=== PATIENT | male | born 1945 | race Caucasian/White ===

== ENCOUNTER → 2023-04-11 13:15 | Outpatient (BNVA) | payer MEDICARE, BC, SELFPAY | PROVIDERS: Visit Provider Nurse Practitioner Family | DX: L57.0 Actinic keratosis (principal); D22.5 Melanocytic nevi of trunk; L81.4 Other melanin hyperpigmentation; L57.8 Other skin changes due to chronic exposure to nonionizing radiation; L82.1 Other seborrheic keratosis; Z85.820 Personal history of malignant melanoma of skin | CPT/HCPCS: 17000; 17003; 99213 ==

== ENCOUNTER → 2023-10-10 13:45 | Outpatient (BNVA) | payer MEDICARE, BC, SELFPAY | PROVIDERS: Visit Provider Nurse Practitioner Family | DX: L57.0 Actinic keratosis (principal); Z85.820 Personal history of malignant melanoma of skin; D22.5 Melanocytic nevi of trunk; L81.4 Other melanin hyperpigmentation; L57.8 Other skin changes due to chronic exposure to nonionizing radiation; L82.1 Other seborrheic keratosis | CPT/HCPCS: 17000; 99213 ==

== ENCOUNTER → 2024-03-24 15:41 | Outpatient (BNVA) | payer MEDICARE, OTHER, SELFPAY | PROVIDERS: Visit Provider Nurse Practitioner Family | DX: D48.5 Neoplasm of uncertain behavior of skin (principal); L57.0 Actinic keratosis; L81.4 Other melanin hyperpigmentation; Z85.820 Personal history of malignant melanoma of skin | CPT/HCPCS: 11102; 17000; 69100; 99213 ==

== ENCOUNTER → 2024-04-21 08:17 | Outpatient (BNVA) | payer MEDICARE, OTHER, SELFPAY | PROVIDERS: Visit Provider Nurse Practitioner Family | DX: C44.319 Basal cell carcinoma of skin of other parts of face (principal); L57.0 Actinic keratosis; L81.4 Other melanin hyperpigmentation; S40.911A Unspecified superficial injury of right shoulder, initial encounter; X58.XXXA Exposure to other specified factors, initial encounter | CPT/HCPCS: 17000; 99213 ==

== ENCOUNTER → 2024-04-27 09:15 | Outpatient (BNVA) | payer MEDICARE, OTHER, SELFPAY | PROVIDERS: Visit Provider Dermatology | DX: C44.319 Basal cell carcinoma of skin of other parts of face (principal); L81.4 Other melanin hyperpigmentation; L82.1 Other seborrheic keratosis; L90.5 Scar conditions and fibrosis of skin | CPT/HCPCS: 13132; 17311; 99213 ==

== ENCOUNTER → 2024-07-09 09:36 | Outpatient (BNVA) | payer MEDICARE, OTHER, SELFPAY | PROVIDERS: Visit Provider Nurse Practitioner Family | DX: D48.5 Neoplasm of uncertain behavior of skin (principal); L82.0 Inflamed seborrheic keratosis; L57.0 Actinic keratosis; L57.8 Other skin changes due to chronic exposure to nonionizing radiation; L81.4 Other melanin hyperpigmentation; Z85.828 Personal history of other malignant neoplasm of skin; Z85.820 Personal history of malignant melanoma of skin | CPT/HCPCS: 11102; 17000; 17110; 99213 ==

== ENCOUNTER → 2024-07-27 09:25 | Outpatient (BNVA) | payer MEDICARE, OTHER, SELFPAY | PROVIDERS: Visit Provider Dermatology | DX: C44.329 Squamous cell carcinoma of skin of other parts of face (principal) | CPT/HCPCS: 13132; 17311 ==

== ENCOUNTER → 2024-10-08 09:45 | Outpatient (BNVA) | payer MEDICARE, OTHER, SELFPAY | PROVIDERS: Visit Provider Nurse Practitioner Family | DX: L82.1 Other seborrheic keratosis (principal); D17.1 Benign lipomatous neoplasm of skin and subcutaneous tissue of trunk; L81.4 Other melanin hyperpigmentation; Z08 Encounter for follow-up examination after completed treatment for malignant neoplasm; Z85.820 Personal history of malignant melanoma of skin; Z85.828 Personal history of other malignant neoplasm of skin; L57.0 Actinic keratosis | CPT/HCPCS: 17000; 99213 ==

== ENCOUNTER → 2025-01-12 08:43 | Outpatient (BNVA) | payer MEDICARE, OTHER, SELFPAY | PROVIDERS: PCP Family Medicine; Visit Provider Orthopaedic Surgery | DX: M25.522 Pain in left elbow (principal); G56.03 Carpal tunnel syndrome, bilateral upper limbs | CPT/HCPCS: 73080; 99204 ==

== ENCOUNTER 2025-01-28 10:05 | Day surgery (SDC) | payer MEDICARE, OTHER, SELFPAY ==
--- NOTE | 2025-01-28 10:22 | P.HP_ITS ---
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 He has already had EMGs demonstrating compression of the cubital tunnel on the left elbow and carpal tunnel on the bilateral hands. He has failed all conservative measures and therefore at this time is in for surgical intervention to decompress the carpal tunnel as well as the ulnar nerve at the elbow. On the left side Review of Systems General: Reports: 10 or more systems reviewed and unremarkable except in HPI and below Const: Denies: fever(s), chills or body aches Card: Denies: chest pain or dyspnea on exertion Resp: Denies: dyspnea, productive cough or wheezing GI: Denies: abdominal pain, nausea or vomiting Skin/Breast: Denies: changes in skin color or dry skin Neuro: Denies: numbness in extremities or weakness in extremities Psych: Denies: anxiety Fernie/Lymph: Denies: easy bruising or easy bleeding Medications/Allergies Home Medications ?Medication ?Instructions ?Recorded ?Confirmed ?Last Taken ?Type No Known Home Medications 01/27/25 0412/22 Unknown History Allergies Allergy/AdvReac Type Severity Reaction Status Date / Time No Known Allergies Allergy Verified 01/12/25 08:57 PFSH Acute PFSH: Medical History History of malignant melanoma No pertinent past medical history Surgical History No pertinent past surgical history Social History Smoking and tobacco/nicotine status: never used tobacco/nicotine Physical Exam Narrative: Patient has been referred in for evaluation of bilateral carpal tunnel syndrome as well 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 EMG studies have proven this as well as clinical exam is demonstrated positive Tinel's over all of the sites with some decrease strength in gripping and grasping on the left arm. Const: COMMON NORMALS: no acute distress, average body habitus and patient oriented x3 HENMT: COMMON NORMALS: normocephalic, atraumatic and hearing grossly normal bilaterally Eye: OTHER: Deferred Neck/C-Spine: COMMON NORMALS: full ROM, no lymphadenopathy and supple Lymph: OTHER: Deferred Chest: COMMONS NORMALS: normal inspection of the chest and normal palpation of entire chest wall Resp: COMMON NORMALS: normal respiratory effort, No retractions, No use of accessory muscles and clear to auscultation bilaterally Cardio: COMMON NORMALS: no JVD, regular rate, regular rhythm and Peripheral pulses 2+ throughout GI: COMMON NORMALS: Normal to inspection, nondistended, normoactive bowel sounds present, Soft to palpation and non-tender : OTHER: Deferred Back/Pelvis: COMMON NORMALS: thoracic and lumbar spine normal to inspection and no thoracic nor lumbar tenderness Extremity: NARRATIVE EXTREMITY EXAM: As per above Neuro: COMMON NORMALS: patient oriented x3, moves all extremities and no focal motor deficits Psych: COMMON NORMALS: mental status grossly normal, Normal thought process present, cooperative and normal affect Skin: COMMON NORMALS: no rashes or lesions noted and no wounds Data Other data: EMG studies show compression of ulnar nerve at the cubital tunnel left elbow. 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 Coding Level of Care Code Acute Code for [facility] Diagnoses Carpal tunnel syndrome of left wrist G56.02
[2025-01-28 10:24] VITALS: BP 145/92; PULSE 65; RESP 17; TEMP 36.5; O2SAT 97; BMI 22.8
--- NOTE | 2025-01-28 11:23 | PC.NURSE ---
1107 time out completed with and pt,. Left clavicle block completed by Dr. Dixon, 30cc 0.5% ropivacaine with 4mg of decadron given via ultrasound guidance via Dr. Dixon, vitals signs pre BP- 184/97 left lower leg, pulse-64, SPo2-99% 2L o2 via NC, vitals signs post procedure, BP 191/93 lower left leg, pulse- 67, SP02 99% 2L via NC. Pt tolerate procedure well.
[2025-01-28] MEDS: sodium chloride 0.9% 1,000 ML 30 ML IV (11:30)
--- NOTE | 2025-01-28 11:57 | P.ANESASSM_ITS ---
Pre-Anesthetic Assessment Height/Weight: Height 1.83 m Weight 76.204 kg Temp Pulse Resp BP Pulse Ox O2 Del Method 97.7 F 65 17 145/92 97 Room Air 01/28/25 10:24 01/28/25 10:24 01/28/25 10:24 01/28/25 10:24 01/28/25 10:24 01/28/25 10:24 Operation Date: 01/28/25 12:00 Proposed Procedures p Carpal Tunnel Release(Left) - Hossein Ascencio MD s Ulnar Nerve Transposition(Left) - Hossein Ascencio MD Familial anesthetic complications: None Was Beta Dawit taken within 24 hours: N/A Was Clonidine taken within 24 hours: N/A Last intake: Intake Last Liquid Date 01/28/25 Last Liquid Time 02:00 Last Solid Date 01/27/25 Last Solid Time 18:00 Exam alert, oriented x 3, clear to auscultation bilaterally and regular rate & rhythm Anesthetic Plan ASA status: 1 Anesthesia: Regional (specify below) Other: Patient declining any anthesia other than block, did agree to undergo general anesthesia in the even that his block fails Risk of > 500 ml blood loss (7ml/kg in children): No Medications/Allergies Home Medications ?Medication ?Instructions ?Recorded ?Confirmed ?Last Taken ?Type No Known Home Medications 01/27/25 0412/22 Unknown History Allergies Allergy/AdvReac Type Severity Reaction Status Date / Time No Known Allergies Allergy Verified 01/12/25 08:57 [facility] Anesthesia Medical History History of malignant melanoma No pertinent past medical history Surgical History No pertinent past surgical history Social History Smoking and tobacco/nicotine status: never used tobacco/nicotine Data Anesthesia Cardiac Studies: No Data to Display
--- NOTE | 2025-01-28 11:58 | ANES.PROC ---
Anesthesia Procedures Procedure/Date: 01/28/25 Nerve Block ^: Nerve Block 1: Main Anesthesia: other (None) Time Out Performed: Yes Consent: requested by attending/covering physician, from patient, from other, risks and benefits reviewed and patient agrees to proceed Nerve block location: supraclavicular (L) Anesthesia monitors applied: pulse oximetry, EKG, BP cuff and oxygen Nerve block position: semi sitting Anesthetic Used: ropivicaine 0.5% (30 ml) and with decadron (4 mg) Ultrasound used to: recognize landmarks, visualize and ID brachial plexus and in supraclavicular region Nerve Stimulator Used?: No Interscalene/Femoral BLK: 4 stimuplex 21 g needle used for position and inplane approach, visualize local anesthetic spread and no vascular puncture identified Injection: neg aspiration of heme Patient Tolerated Procedure: well Complications: none
[2025-01-28] MEDS: ceFAZolin 2,000 mg SDV 2000 MG IVP (12:07)
[2025-01-28] MEDS: lidocaine-epi 1% 20 mL INJ INJECTION (12:28)
[2025-01-28] MEDS: ROPivacaine 0.5% SDV 30 mL 150 MG INJECTION (12:29)
[2025-01-28 12:56] VITALS: BP 156/78; PULSE 78; RESP 17; TEMP 36.2; O2SAT 100
--- NOTE | 2025-01-28 13:02 | PM.OP ---
Operative Report Date of procedure: January 28, 2025 Surgeon: Hossein Ascencio MD Procedure: Preop diagnosis: Left cubital tunnel syndrome and left carpal tunnel syndrome Postop diagnosis: Same Procedure: Release of left cubital tunnel as well as release of left carpal tunnel Surgeon: Hossein Ascencio MD Anesthesia: Supraclavicular block with local anesthetic EBL: 2 cc Tourniquet time: 28 minutes at 250 mmHg Complications: None Indications: Ezio is a 79-year-old white male was referred in the orthopedic clinics for evaluation of cubital and carpal tunnel releases. He had previously had EMG studies done by his primary care demonstrating compression of these nerves at both sites. He had clinical findings consistent with this also. He was offered releases of both of these nerves. All risk benefits treatment alternatives were discussed with him. He is understand that he may not resolve all of his symptoms and that there may be permanent nerve damage prior to the surgery. He is agreeable to proceed with surgical intervention at this time. Procedure: After obtaining her consent patient had supraclavicular block administered in preop holding area. Patient then taken to the operating room and while still on his [facility] had a pneumatic cuff placed on proximal left arm. Left arm was prepped and draped usual fashion. After surgical timeout the arm was exsanguinated with an Esmarch wrap. Pneumatic cuffs inflated 2 and 50 mmHg. Initial incision was made over the medial epicondyle of the left elbow. Once down to subcutaneous tissue patient indicated that he could still feel this. Subsequently a combination of plain bupivacaine and lidocaine with epi and Afrin was then used to anesthetize this area. From that point on the patient was comfortable. Sharp dissect taken all the way down to the periosteum over the lateral epicondyle. Blunt and sharp fashion using tenotomy scissors as well as Metzenbaum scissors layer by layer was dissected down until the ulnar was identified and decompressed. This found that there is thickened tissue over the end extent of the ulnar nerve at the level of the medial epicondyle. This divided all the way up along the nerve as far as it could be visualized. Ends well down into the muscle bellies of the flexor musculature. Care was taken to identify all structures prior to being cut or removed or retracted. No substantial bleeding was encountered. Once adequate decompression been achieved subcutaneous tissue reapproximated with #3 Vicryl [id number] and interrupted sutures. Skin was closed with running 3-0 nylon horizontal mattress suture. Attention was then turned towards the carpal tunnel. Palmar incision was made on the volar surface of the palm just distal to the distal flexion crease of the wrist extending distally 1 and half centimeters along the ulnar border of the mid palmar crease. Sharp dissect taken on down subcutaneous tissue. Sharp dissection taken all the way down the transverse carpal ligament and this divided with #15 blade. Was found that this transverse carpal ligament was very thickened and scarred. Once adequate opening of the carpal tunnel been achieved in a blunt and sharp fashion using Metzenbaum scissors that ligament was divided both proximally and distally to decompress the nerve. Once adequate decompression been achieved skin was closed with running 3-0 nylon horizontal mattress suture. Also mixture of lidocaine and Marcaine were placed in the palm for postoperative pain management. Wounds were then dressed Xeroform gauze, sterile gauze dressing, Kerlix wrap, Luis wrap for compression. Patient awakened transferred back to recovery room stable condition
[2025-01-28 13:21] VITALS: BP 167/72; PULSE 98; RESP 18; O2SAT 97
--- NOTE | 2025-01-28 14:08 | PC.NURSE ---
Pt in restroom at discharge, pt states he stood up and felt a feeling like he was going to pass out and called out, nurse assisted pt to wheelchair and brought pt back to room, pt vital signs obtained pt blood pressure 94/48, pulse 68, sp-02 98%, pt states he was starting to feel better, next blood pressure was 103/56, notified Anesthesia, will monitor blood pressure for another 30-45 to make sure pressures are maintaining, pt given water and states he is feeling a lot better. pt okay with discussed plan.
[2025-01-28 14:30] VITALS: BP 125/62
[2025-01-28 14:55] VITALS: BP 130/71
--- NOTE | 2025-01-28 15:21 | ANE.PACU2 ---
Inpatient post-anesthesia follow up: Airway intact: Yes Vital signs: Temperature 97.1 F Pulse Rate 98 Respiratory Rate 18 Blood Pressure 130/71 Pulse Oximetry 97 Oxygen Delivery Me thod Room Air Oxygen Flow Rate Fraction of Inspir ed Oxygen Hydration adequate: Yes Nausea and vomiting: No Pain level: 1 Mental status: Baseline Additional Comments: Patient had orthostatic hypotension while using bathroom after IV removed. Sat patient down, provided water. Patient felt well aftewards with no repeat of episodes. Educated to return to ER or call ambulance if experiences any shortness of breath, syncope, excessive lightheadedness, chest pains.
== END 2025-01-28 14:56 | disposition home or self-care (01) ==
PROVIDERS: PCP Family Medicine; Visit Provider Orthopaedic Surgery
PROC: (CPT 64721; principal; 2025-01-28 12:00)
DX: G56.02 Carpal tunnel syndrome, left upper limb (principal); G56.22 Lesion of ulnar nerve, left upper limb
CPT/HCPCS: 64718; 64721; J0330; J0360; J0690; J1100; J2405; J2704; J2795; J3010; J7030; J9999

== ENCOUNTER → 2025-02-08 08:54 | Outpatient (BNVA) | payer MEDICARE, OTHER, SELFPAY | PROVIDERS: PCP Family Medicine; Visit Provider Nurse Practitioner Family | DX: L82.1 Other seborrheic keratosis (principal); L81.4 Other melanin hyperpigmentation; Z08 Encounter for follow-up examination after completed treatment for malignant neoplasm; Z85.820 Personal history of malignant melanoma of skin; Z85.828 Personal history of other malignant neoplasm of skin; D48.5 Neoplasm of uncertain behavior of skin; L57.0 Actinic keratosis | CPT/HCPCS: 11102; 17000; 99213 ==

== ENCOUNTER → 2025-02-11 08:15 | Outpatient (BNVA) | payer MEDICARE, OTHER, SELFPAY | PROVIDERS: PCP Family Medicine; Visit Provider Orthopaedic Surgery | DX: Z98.890 Other specified postprocedural states (principal) | CPT/HCPCS: 99024 ==

== ENCOUNTER → 2025-03-01 08:55 | Outpatient (BNVA) | payer MEDICARE, OTHER, SELFPAY | PROVIDERS: PCP Family Medicine; Visit Provider Dermatology | DX: C44.319 Basal cell carcinoma of skin of other parts of face (principal) | CPT/HCPCS: 13132; 17311 ==

== ENCOUNTER 2025-07-30 12:47 | Outpatient (CLI) | payer MEDICARE, OTHER, SELFPAY ==
--- NOTE | 2025-07-30 12:47 | PETR_ITS ---
PROCEDURE INFORMATION: Exam: PET/CT Skull Base to Mid-thigh Exam date and time: 07/30/2025 1:58 PM Age: 80 years old Clinical indication: Abnormal findings of lung field. Bilateral pulmonary nodules measuring up to 1.6 cm and left axillary lymphadenopathy found on CT chest on 07/07/2025. LABS AND CLINICAL REPORTS: Glucose: 97 mg/dl Treatment strategy for malignancy (PET staging): Initial Staging (PI) TECHNIQUE: Imaging protocol: Following at least four-hour fasting and following the injection of radiopharmaceutical, low dose CT images were obtained. Then, PET images were obtained. Attenuation corrected images were constructed using the CT scan. Fused images of PET and CT were reviewed. The standardized uptake values (SUV) reported below are maximum values within a region of interest, expressed in gm/ml. Exam includes orbital meatal line to mid-thigh. SUV normalization method: BodyWeight Radiopharmaceutical: 11.62 mCi F-18 FDG (Fluorodeoxyglucose), IV. Time of imaging post radiopharmaceutical administration: 51 minutes Injection site: left ac COMPARISON: No relevant prior studies available. Report of CT chest on 07/07/2025 is available for correlation. FINDINGS: Brain: On the nondedicated limited brain images there is no abnormal distribution of the radiotracer in the renteria and white matter. Pharynx: Normal distribution of the radiotracer in nasopharyngeal, and oropharyngeal structures. Larynx: Normal distribution of the radiotracer in laryngeal structures. Lungs, pleura and trachea: There is a single FDG avid nodule in each upper lobe measuring 1.4 cm/15.7 SUV on the left side and 0.5 cm/3.2 SUV on the right side. Subsegmental atelectases are seen in the lung bases. No pleural effusion. Heart: Normal physiologic uptake. There is cardiomegaly. Severe coronary artery calcification is present. There is no pericardial effusion. Mediastinal space: No abnormal uptake. There is a small hiatal hernia. Liver: Normal size without abnormal radiotracer uptake. 0.8 cm simple cyst inferiorly in the right hepatic lobe on axial image 176. Gallbladder and biliary ducts: No abnormal uptake. Pancreas: Normal distribution of radiotracer. Spleen: Normal size without abnormal radiotracer uptake. Adrenal glands: No abnormal uptake. No nodules. Kidneys and ureters: Normal physiologic uptake. No hydronephrosis. Stomach and bowel: No abnormal uptake. Vasculature: No abnormal uptake. Lymph nodes: 1.4 cm rounded nodule in the left axilla measures 9.4 SUV. Borderline uptake of 2.1 SUV within normal-sized right inguinal lymph node on axial image 264 is nonspecific. No FDG avid lymphadenopathy in the head, neck, chest, abdomen, pelvis, right axilla, and the left groin. Skeleton: Diffusely increased synovial uptake in both shoulders and elbows is benign inflammatory in nature. Status post right shoulder replacement. There are degenerative changes in the lumbar spine with slight scoliosis convex to the left centered at L1-L2 level Soft tissues: 1.8 x 1 cm subcutaneous nodule in the right upper back measures 7.9 SUV. 1.9 cm subpleural nodule in the left posterolateral lower chest between the left ribs 9 and 10 measures 10 SUV. Borderline uptake of 2.3 SUV in slightly thickened skin or within the right groin skin fold (axial image 261- 262) is nonspecific. Status post repair of bilateral inguinal hernias. METRICS: Mediastinal blood pool maximal uptake is 2.4 SUV. Liver maximal uptake is implant day SUV. PET/PET skull to thigh INIT [id number] IMPRESSION: FDG avid findings suggestive of malignancy include: 1. A single lung nodule in each upper lobe measuring 1.4 cm/15.7 SUV on the left side and 0.5 cm/3.2 cm on the right side. 2. 1.4 cm left axillary nodule measuring 9.4 SUV, lymph node or extranodal malignant implant. 3. 1.9 cm subpleural nodule in the left posterolateral lower chest wall between the left ribs 9 and 10 measuring 10 SUV. 4. 1.8 x 1 cm subcutaneous nodule in the right upper back measuring 7.9 SUV.
== END 2025-07-30 12:48 | disposition home or self-care (01) ==
LOC: RAD 12:47
PROVIDERS: PCP Family Medicine; Visit Provider Registered Nurse
DX: R91.1 Solitary pulmonary nodule (principal); R91.8 Other nonspecific abnormal finding of lung field; R59.0 Localized enlarged lymph nodes; J98.11 Atelectasis; I51.7 Cardiomegaly; I25.10 Atherosclerotic heart disease of native coronary artery without angina pectoris; K44.9 Diaphragmatic hernia without obstruction or gangrene; K76.89 Other specified diseases of liver; G31.89 Other specified degenerative diseases of nervous system
CPT/HCPCS: 78815; A9552

== ENCOUNTER → 2025-08-10 09:57 | Outpatient (BNVA) | payer MEDICARE, OTHER, SELFPAY | PROVIDERS: PCP Family Medicine; Visit Provider Nurse Practitioner Family | DX: B07.8 Other viral warts (principal); L82.1 Other seborrheic keratosis; L81.4 Other melanin hyperpigmentation; Z08 Encounter for follow-up examination after completed treatment for malignant neoplasm; Z85.820 Personal history of malignant melanoma of skin; Z85.828 Personal history of other malignant neoplasm of skin; D48.5 Neoplasm of uncertain behavior of skin; L57.0 Actinic keratosis | CPT/HCPCS: 11102; 17000; 99213 ==

== ENCOUNTER → 2025-09-17 07:47 | Outpatient (BNVA) | payer MEDICARE, OTHER, SELFPAY | PROVIDERS: PCP Family Medicine; Visit Provider Dermatology | DX: C79.89 Secondary malignant neoplasm of other specified sites (principal); C44.311 Basal cell carcinoma of skin of nose; D48.5 Neoplasm of uncertain behavior of skin; L57.0 Actinic keratosis | CPT/HCPCS: 11102; 17000; 17281; 99214 ==